=== PATIENT | male | born 1955 | race African-American/Black ===

== ENCOUNTER 2016-07-31 10:40 | Outpatient (CLI) | payer MEDICARE ==
[2016-07-31 11:27] LABS: #Basophils 0.1 thou/uL (0.0-0.2); #Eosinphils 0.1 thou/uL (0.0-0.7); #Lymphocytes 2.2 thou/uL (1.20-3.40); #Monocytes 0.4 thou/uL (0.11-0.59); #Neutrophils 1.8 thou/uL (1.40-6.50); %Basophils 1.1 % (0.0-1.0); %Eosinophils 2.1 % (0.0-10.0); %Monocytes 9.6 % (0.0-10.0); %Neutrophils 39.3 % (42.0-75.0); Hemoglobin 14.7 g/dL (14.0-18.0); Mean Corpuscular HGB CONC 34.8 g/dL (32.0-36.0); Mean Corpuscular Hemoglobin 33.9 pg (27.0-31.0); Mean Corpuscular Volume 97.5 fl (80.0-94.0); Mean Platelet Volume 6.1 fL (7.4-10.4); Platelet Count 244 thou/uL (130-400); RBC Distribution Width 11.9 % (11.5-14.5); Red Blood Cell (RBC) Count 4.34 mill/uL (4.70-6.10); White Blood Cell (WBC) Count 4.5 thou/uL (4.8-10.8)
[2016-07-31 11:42] LABS: ALT (SGPT) 21 U/L (8-55); AST (SGOT) 29 U/L (5-34); Albumin 3.9 g/dL (3.5-5.0); Alkaline Phosphatase 81 U/L (40-150); Anion Gap 11 mmol/L (10-20); BUN (Urea Nitrogen) 10 mg/dL (8.4-25.7); Bilirubin, Total 0.6 mg/dL (0.2-1.2); Calc. Creatinine Clearance 0 mL/min (70-130); Calcium 8.9 mg/dL (7.8-10.44); Carbon Dioxide 28 mmol/L (22-29); Cardiac Risk 3.1 (Less than 4.5); Chloride 104 mmol/L (98-107); Cholesterol 141 mg/dL (< 200 Desired); Estimated GFR-MDRD Greater than 90; Globulin 3.2 g/dL (2.4-3.5); Glucose 92 mg/dL (70-105); HDL Cholesterol 45 mg/dL (>60 Neg Risk); LDL Cholesterol, Calculated 87 mg/dL; Potassium 3.7 mmol/L (3.5-5.1); Protein, Total 7.1 g/dL (6.0-8.3); Sodium 139 mmol/L (136-145); Triglycerides 44 mg/dL (Less than 150)
[2016-07-31 11:49] LABS: Hemoglobin A1c 5.3 % (4.0-6.0)
[2016-07-31 11:51] LABS: PSA-Asymptomatic (SCREENING) 0.17 ng/mL (0-4.0); Thyroid Stimulating Hormone 0.5568 uIU/mL (0.35-4.94)
== END 2016-07-31 10:41 | disposition home or self-care (01) ==
LOC: HPCALD 10:40
PROVIDERS: ATTEND Family Medicine
DX: R73.01 Impaired fasting glucose (principal); R74.0 Nonspecific elevation of levels of transaminase and lactic acid dehydrogenase [LDH]; I10 Essential (primary) hypertension; Z12.5 Encounter for screening for malignant neoplasm of prostate
CPT/HCPCS: 36415; 80053; 80061; 83036; 84443; 85025; G0103

== ENCOUNTER 2016-10-16 10:40 | Outpatient (CLI) | payer MEDICARE ==
[2016-10-16 18:06] LABS: Folate (Folic Acid) 9.9 ng/mL (7.0-31.4)
== END 2016-10-16 10:41 | disposition home or self-care (01) ==
LOC: BURLAB 10:40
PROVIDERS: ATTEND Family Medicine
DX: D53.9 Nutritional anemia, unspecified (principal)
CPT/HCPCS: 36415; 82607; 82746

== ENCOUNTER 2017-04-05 08:31 | Emergency (ER) | payer MEDICARE ==
[2017-04-05] MEDS ORDERED: Ketorolac Tromethamine 60 MG/2 ML VIAL ONE (09:24)
--- NOTE | 2017-04-05 13:49 | RAD ---
LEFT HIP 2 VIEWS: DATE: 04/05/17. FINDINGS: No fracture or joint space narrowing is seen. The articular surfaces are smooth. The adjacent pubic ring appears intact. Some lucency in the proximal femoral shaft laterally is not seen completely on this film, but it is most likely chronic. IMPRESSION: No acute findings. POS: HOME
--- NOTE | 2017-04-05 13:53 | RAD ---
LUMBAR SPINE 3 VIEWS: DATE: 04/15/17. FINDINGS: Minimal curvature is present convex right which could be positional. The SI joints appear normal and arcuate lines of the sacrum that can be seen appear normal as well. No lumbar fracture was visualiz ed. There is multilevel disk space narrowing, but prominently at L5-S1. The anterior osteophytes ar e noted at several of the lower lumbar levels as well as some facet arthritis in the lower lumbar lev els. Some calcification is seen in the abdominal aorta. IMPRESSION: Multilevel degenerative disk disease and degenerative facet arthritis. POS: HOME
== END 2017-04-05 09:38 | disposition home or self-care (01) ==
LOC: BURERS 08:31
DX: M54.5 Low back pain (principal); I10 Essential (primary) hypertension; F17.210 Nicotine dependence, cigarettes, uncomplicated; Z79.899 Other long term (current) drug therapy; W17.2XXA Fall into hole, initial encounter
CPT/HCPCS: 72100; 96372; J1885

== ENCOUNTER 2020-03-15 08:57 | Outpatient (CLI) | payer MEDICARE ==
--- NOTE | 2020-03-15 17:47 | RAD ---
RIGHT SHOULDER THREE VIEWS: 03/15/20 No fracture, dislocation, or AC joint widening was seen. The visible adjacent ribs appear intact. IMPRESSION: No acute finding. POS: HOME
--- NOTE | 2020-03-15 17:48 | RAD ---
RIGHT HUMERUS: 03/15/20 Multiple views demonstrate no acute fracture. The elbow is not completely evaluated. IMPRESSION: Humerus appears intact. POS: HOME
== END 2020-03-15 08:58 | disposition home or self-care (01) ==
LOC: BURRAD 08:57
PROVIDERS: ATTEND Family Medicine
DX: M25.511 Pain in right shoulder (principal)

== ENCOUNTER 2020-10-02 14:15 | Outpatient (CLI) | payer MEDICARE | END 2020-10-02 14:16 | disposition home or self-care (01) | LOC: BURRAD 14:15 | PROVIDERS: ATTEND Family Medicine | DX: M25.552 Pain in left hip (principal); M25.562 Pain in left knee; M51.16 Intervertebral disc disorders with radiculopathy, lumbar region; M89.9 Disorder of bone, unspecified | CPT/HCPCS: 72110 ==

== ENCOUNTER 2022-01-14 11:04 | Emergency (ER) | payer MEDICARE ==
[2022-01-14] MEDS ORDERED: Morphine 4 MG/ML VIAL ONE ×2 (12:09→15:23)
[2022-01-14 12:16] LABS: #Basophils 0.1 thou/uL (0.0-0.2); #Eosinphils 0.1 thou/uL (0.0-0.7); #Lymphocytes 1.7 thou/uL (1.20-3.40); #Monocytes 0.7 thou/uL (0.11-0.59); #Neutrophils 3.1 thou/uL (1.40-6.50); %Basophils 1.6 % (0.0-1.0); %Eosinophils 1.3 % (0.0-10.0); %Monocytes 12.1 % (0.0-10.0); Mean Corpuscular HGB CONC 33.9 g/dL (32.0-36.0); Mean Corpuscular Hemoglobin 33.7 pg (27.0-31.0); Mean Corpuscular Volume 99.3 fL (78.0-98.0); Mean Platelet Volume 6.3 fL (7.4-10.4); Platelet Count 242 thou/uL (130-400); RBC Distribution Width 11.6 % (11.5-14.5); Red Blood Cell (RBC) Count 4.44 mill/uL (4.70-6.10); White Blood Cell (WBC) Count 5.6 thou/uL (4.8-10.8)
[2022-01-14 12:33] LABS: ALT (SGPT) 30 U/L (8-55); AST (SGOT) 27 U/L (5-34); Alkaline Phosphatase 66 U/L (40-110); Anion Gap 14 mmol/L (10-20); BUN (Urea Nitrogen) 11 mg/dL (8.4-25.7); Bilirubin, Total 0.9 mg/dL (0.2-1.2); Calc. Creatinine Clearance 0 mL/min (70-130); Calcium 9.1 mg/dL (7.8-10.44); Carbon Dioxide 27 mmol/L (23-31); Chloride 101 mmol/L (98-107); Estimated GFR 81; Globulin 3.7 g/dL (2.4-3.5); Glucose 100 mg/dL (80-115); Lipase 32 U/L (8-78); Protein, Total 7.7 g/dL (5.8-8.1); Sodium 139 mmol/L (136-145)
[2022-01-14 13:33] LABS: Bilirubin Negative (Negative); Blood, Urine Negative (Negative); Clarity Clear (Clear); Glucose, Urine (Dipstick) Negative (Negative); Ketone, Urine Negative (Negative); Leukocyte Negative (Negative); Nitrite Negative (Negative); Protein, Urine (Dipstick) Negative (Neg-Trace); Urobilinogen 0.2 mg/dL (Less than 2)
== END 2022-01-14 15:36 | disposition home or self-care (01) ==
LOC: BURERS 11:04
DX: R10.31 Right lower quadrant pain (principal); E87.6 Hypokalemia; I44.4 Left anterior fascicular block; I10 Essential (primary) hypertension; F17.210 Nicotine dependence, cigarettes, uncomplicated
CPT/HCPCS: 36415; 74177; 80053; 81003; 83605; 83690; 85025; 93005; 96374; 96376; J2270

== ENCOUNTER 2022-03-01 07:48 | Emergency (ER) | payer MEDICARE ==
[2022-03-01] MEDS ORDERED: Morphine 10 MG/ML VIAL ONE (08:13)
[2022-03-01] MEDS ORDERED: Cefepime 2 GM VIAL ONE (08:28)
[2022-03-01] MEDS ORDERED: Sodium Chloride 0.9% 100 ML ONE (08:29)
[2022-03-01 08:39] LABS: Hemoglobin 19.2 g/dL (14.0-18.0); Mean Corpuscular HGB CONC 34.1 g/dL (32.0-36.0); Mean Corpuscular Hemoglobin 33.5 pg (27.0-31.0); Mean Corpuscular Volume 98.4 fl (78.0-98.0); Mean Platelet Volume 6.4 fL (7.4-10.4); Platelet Count 376 10x3/uL (130-400); RBC Distribution Width 12.1 % (11.5-14.5); Red Blood Cell (RBC) Count 5.72 mill/uL (4.70-6.10); White Blood Cell (WBC) Count 5.6 10x3/uL (4.8-10.8)
[2022-03-01 08:40] LABS: ALT (SGPT) 52 U/L (8-55); AST (SGOT) 68 U/L (5-34); Albumin 3.8 g/dL (3.4-4.8); Alkaline Phosphatase 92 U/L (40-110); Anion Gap 29 mmol/L (10-20); BUN (Urea Nitrogen) 21 mg/dL (8.4-25.7); Bilirubin, Total 4.5 mg/dL (0.2-1.2); Calc. Creatinine Clearance 0 mL/min (70-130); Calcium 9.6 mg/dL (7.8-10.44); Carbon Dioxide 17 mmol/L (23-31); Chloride 89 mmol/L (98-107); Estimated GFR 30; Globulin 4.6 g/dL (2.4-3.5); Glucose 179 mg/dL (80-115); Lipase 13 U/L (8-78); Potassium 3.1 mmol/L (3.5-5.1); Protein, Total 8.4 g/dL (5.8-8.1); Sodium 132 mmol/L (136-145)
[2022-03-01 08:54] LABS: Band 13 % (5-11); Lymphocytes 14 % (21-51); MDiff Complete? YES; Monocytes 5 % (0-10); Neutrophil 68 % (42-75); Platelet Morphology Comment Appears Adequate; RBC Morphology Normal
[2022-03-01] MEDS ORDERED: Vancomycin 1 GM VIAL ONE (09:15)
== END 2022-03-01 10:13 | disposition home or self-care (01) ==
LOC: BURERS 07:48
DX: E87.20 Acidosis, unspecified (principal); K66.8 Other specified disorders of peritoneum; F17.290 Nicotine dependence, other tobacco product, uncomplicated
CPT/HCPCS: 74018; 74176; 80053; 83605; 83690; 85025; 87040; 87077; 87149; 87186; 93005; 96365; 96375; J0692; J2270; J3370; J3490

== ENCOUNTER 2024-01-24 12:31 | Emergency (ER) | payer MEDICARE ==
[2024-01-24] MEDS ORDERED: Iopamidol 370 76% 100 ML VIAL ONE (12:57)
[2024-01-24 12:58] LABS: #Basophils 0.1 thou/uL (0.0-0.2); #Lymphocytes 1.8 thou/uL (1.20-3.40); #Monocytes 0.6 thou/uL (0.11-0.59); #Neutrophils 9.7 thou/uL (1.40-6.50); %Basophils 0.5 % (0.0-1.0); %Eosinophils 0.1 % (0.0-10.0); %Lymphocytes 14.6 % (21.0-51.0); %Monocytes 4.9 % (0.0-10.0); %Neutrophils 79.9 % (42.0-75.0); Hematocrit 43.4 % (42.0-52.0); Hemoglobin 14.8 g/dL (14.0-18.0); Mean Corpuscular HGB CONC 34.2 g/dL (32.0-36.0); Mean Corpuscular Hemoglobin 33.1 pg (27.0-31.0); Mean Corpuscular Volume 96.9 fl (78.0-98.0); Mean Platelet Volume 6.6 fL (7.4-10.4); Platelet Count 280 10x3/uL (130-400); RBC Distribution Width 11.5 % (11.5-14.5); Red Blood Cell (RBC) Count 4.48 mill/uL (4.70-6.10); White Blood Cell (WBC) Count 12.1 10x3/uL (4.8-10.8)
[2024-01-24] MEDS ORDERED: Ondansetron PF 4 MG/2 ML Vial ONE (13:06)
[2024-01-24] MEDS ORDERED: Ketorolac Tromethamine 30 MG (1 mL) VIAL ONE (13:06)
[2024-01-24 13:14] LABS: ALT (SGPT) 21 U/L (8-55); AST (SGOT) 24 U/L (5-34); Albumin 3.7 g/dL (3.4-4.8); Alkaline Phosphatase 66 U/L (40-110); Anion Gap 16 mmol/L (10-20); BUN (Urea Nitrogen) 9 mg/dL (8.4-25.7); Calc. Creatinine Clearance 0 mL/min (70-130); Calcium 8.6 mg/dL (7.8-10.44); Carbon Dioxide 23 mmol/L (23-31); Chloride 101 mmol/L (98-107); Estimated GFR 80; Globulin 4.6 g/dL (2.4-3.5); Glucose 105 mg/dL (80-115); Lipase 8 U/L (8-78); Potassium 2.8 mmol/L (3.5-5.1); Protein, Total 8.3 g/dL (5.8-8.1); Sodium 137 mmol/L (136-145)
[2024-01-24] MEDS ORDERED: Morphine 4 MG/ML VIAL ONE ×2 (14:05→15:10)
[2024-01-24] MEDS ORDERED: Potassium Chloride 20 MEQ (100 mL) BAG ONE (14:26)
[2024-01-24] MEDS ORDERED: Piperacillin/Tazobactam 4.5 GM VIAL ONE (14:27)
[2024-01-24] MEDS ORDERED: Vancomycin 1 GM VIAL ONE (14:27)
== END 2024-01-24 15:28 | disposition short-term general hospital (02) ==
LOC: BURERS 12:31
DX: K63.1 Perforation of intestine (nontraumatic) (principal); E87.6 Hypokalemia; I10 Essential (primary) hypertension
CPT/HCPCS: 74177; 80053; 83605; 83690; 85025; J1885; J2272; J2405; J2543; J3370; J3480; Q9967; 96361; 96365; 96375; 96376

== ENCOUNTER 2024-02-23 20:12 | Emergency (ER) | payer MEDICARE ==
[2024-02-23 20:44] LABS: #Basophils 0.1 thou/uL (0.0-0.2); #Lymphocytes 0.8 thou/uL (1.20-3.40); #Monocytes 0.3 thou/uL (0.11-0.59); #Neutrophils 8.2 thou/uL (1.40-6.50); %Eosinophils 0.2 % (0.0-10.0); %Lymphocytes 8.8 % (21.0-51.0); %Monocytes 3.4 % (0.0-10.0); %Neutrophils 86.6 % (42.0-75.0); Hematocrit 41.9 % (42.0-52.0); Hemoglobin 14.4 g/dL (14.0-18.0); Mean Corpuscular HGB CONC 34.4 g/dL (32.0-36.0); Mean Corpuscular Hemoglobin 32.7 pg (27.0-31.0); Mean Corpuscular Volume 95.1 fl (78.0-98.0); Mean Platelet Volume 6.1 fL (7.4-10.4); Platelet Count 244 10x3/uL (130-400); RBC Distribution Width 12.1 % (11.5-14.5); Red Blood Cell (RBC) Count 4.41 mill/uL (4.70-6.10); White Blood Cell (WBC) Count 9.4 10x3/uL (4.8-10.8)
[2024-02-23 21:02] LABS: ALT (SGPT) 68 U/L (8-55); AST (SGOT) 101 U/L (5-34); Albumin 4.1 g/dL (3.4-4.8); Alkaline Phosphatase 79 U/L (40-110); Anion Gap 22 mmol/L (10-20); BUN (Urea Nitrogen) 26 mg/dL (8.4-25.7); Bilirubin, Total 2.3 mg/dL (0.2-1.2); Calc. Creatinine Clearance 0 mL/min (70-130); Calcium 8.3 mg/dL (7.8-10.44); Carbon Dioxide 23 mmol/L (23-31); Chloride 93 mmol/L (98-107); Estimated GFR 56; Globulin 4.4 g/dL (2.4-3.5); Glucose 123 mg/dL (80-115); Potassium 2.8 mmol/L (3.5-5.1); Protein, Total 8.5 g/dL (5.8-8.1); Sodium 135 mmol/L (136-145)
[2024-02-23 21:05] LABS: Critical Call Chemistry NUR.AF7 AT 2103; Magnesium Less than 0.6 mg/dL (1.6-2.6)
[2024-02-23] MEDS ORDERED: Magnesium 2 GM/50 ML BAG (IN WATER) ONE (21:25)
[2024-02-23] MEDS ORDERED: Potassium Chloride 20 MEQ (100 mL) BAG ONE (21:25)
[2024-02-23] MEDS ORDERED: NS 0.9% w/ 20 MEQ KCL 1,000 ML ONE (21:32)
[2024-02-23] MEDS ORDERED: Potassium Bicarbonate/Cit Ac 20 MEQ TAB ONE (21:41)
[2024-02-23] MEDS ORDERED: Morphine 4 MG/ML VIAL ONE (23:22)
[2024-02-24 00:04] LABS: Magnesium 1.3 mg/dL (1.6-2.6)
[2024-02-24 00:08] LABS: Potassium 4.1 mmol/L (3.5-5.1)
[2024-02-24 01:21] LABS: Anion Gap 19 mmol/L (10-20); BUN (Urea Nitrogen) 22 mg/dL (8.4-25.7); Calc. Creatinine Clearance 0 mL/min (70-130); Calcium 8.1 mg/dL (7.8-10.44); Carbon Dioxide 26 mmol/L (23-31); Chloride 95 mmol/L (98-107); Estimated GFR 79; Glucose 129 mg/dL (80-115); Magnesium 1.2 mg/dL (1.6-2.6); Potassium 3.7 mmol/L (3.5-5.1); Sodium 136 mmol/L (136-145)
== END 2024-02-24 01:40 | disposition home or self-care (01) ==
LOC: BURERS 20:12
DX: E87.6 Hypokalemia (principal); E83.42 Hypomagnesemia; I10 Essential (primary) hypertension
CPT/HCPCS: 70450; 80053; 83735; 84132; 85025; J2272; J3475; J3480; 36415; 80048; 96365; 96375